=== PATIENT | male | born 2005 | race Caucasian/White ===

== ENCOUNTER 2023-04-04 01:06 | Emergency (ER) | payer BC, SELFPAY ==
[2023-04-04 01:08] VITALS: BP 144/83; PULSE 75; RESP 16; TEMP 37.1; O2SAT 99; BMI 25.7
--- NOTE | 2023-04-04 01:21 | ED.WOUNDLAC ---
HPI - Wound/Laceration General Chief Complaint: Wound/Laceration Stated Complaint: Lt Thigh inj/hockey inj Time Seen by Provider: 04/04/23 01:18 Source: patient Mode of arrival: ambulatory Limitations: no limitations History of Present Illness HPI narrative: 17 yo male no PMH UTD on tdap here with skin avulsion fatty flap to L lower inner thigh from hockey skate at 945pm. Was at [facility] ED for 5 hours but couldn't wait. No other injuries Onset (ago): hour(s) (945pm) Extremity Location: left: thigh Place: outdoors Patient tetanus UTD: Yes Context: accidental Associated symptoms: none Treatments prior to arrival: bandage Related Data Allergies Allergy/AdvReac Type Severity Reaction Status Date / Time No Known Allergies Allergy Verified 04/04/23 01:18 Review of Systems Review of Systems: Constitutional : No Fever, No Chills, Cardiovascular : No Chest Pain, No SOB Respiratory : No Dyspnea Gastrointestinal : No abdominal pain Musculoskeletal : No Joint Swelling Skin : No rash, positive skin laceration Neuro : No Weakness, No Numbness Psych : No SI/HI PMFSH Past Medical History Attestation statement: The following information was validated with the patient. Source: old records reviewed Medical History (Updated 04/04/23 @ 01:26 by Aracelis Block DO) No pertinent past medical history Social History Social History (Updated 04/04/23 @ 01:23 by Aracelis Block DO) Household Members: Family Physical Exam Vital Signs: Vital Signs: Last Vital Signs Temp 98.8 F 04/04/23 01:08 Pulse 75 04/04/23 01:08 Resp 16 04/04/23 01:08 BP 144/83 H 04/04/23 01:08 Pulse Ox 99 04/04/23 01:08 O2 Del Method Room Air 04/04/23 01:08 BMI result Body Mass Index 25.7 Appearance: Alert. Oriented X3. No acute distress. Eyes: Pupils equal, round and reactive to light. ENT: Pharynx normal. Neck: Normal inspection. Neck supple. CVS: Pulses normal. Respiratory: No respiratory distress. Abdomen: Soft and nontender. Skin: Skin warm and dry. Normal skin color. Normal skin turgor. Extremities: L thigh medial aspect half dollar size avulsion just down to subQ not near joint line distal NV inact Neuro: Oriented X 3. No motor deficit. No sensory deficit. Medications Administered Discontinued Medications Generic Name Dose Route Start Last Admin Trade Name Antwan PRN Reason Stop Dose Admin Lidocaine HCl 5 ml 04/04/23 01:21 04/04/23 01:44 Lidocaine Hcl 1 % Mpf 5 Ml Vial SUBCUT 04/04/23 01:22 5 ml ONCE ONE Administration Medical Decision Making Medical Decision Making MDM Narrative: 17 yo male with accidental left thigh laceration - no other injuries normal ROM no concern for deeper injury will suture - Tdap is UTD, no concern for FB Differential Diagnosis Differential Diagnoses: The differential diagnosis associated with the presentation includes laceration Procedures Laceration Laceration 1: Site: lower extremity Side (If applicable): left Size (cm): 3 Description: flap and irregular Depth: simple, single layer Local Anesthetic: lidocaine 1% Amount of anesthesia used (mL): 5 Pre-repair: wound explored, irrigated extensively and deep structures intact Skin layer closed with: nylon Size (cm): 4-0 Number of sutures: 4 Technique: simple, interrupted Discharge Plan Discharge Clinical Impression: Laceration Patient Disposition: Home, Self-Care Instructions: Laceration (ED) Additional Instructions: okay to shower but no pools, hot tubs or other water exposures. keep covered. no sports until sutures removed sutures out in 7 days monitor for redness, yellow drainage, fevers keep clean dry and covered try not to over bend the leg as the stitches will rip there was a flap so it is high risk that the tissue might not take if overstretched and not taken care of
[2023-04-04] MEDS: Lidocaine HCl 1 % MPF 5 ML VIAL SUBCUT (01:44)
[2023-04-04 02:15] VITALS: BP 133/70; PULSE 74; RESP 16; TEMP 36.8; O2SAT 96
== END 2023-04-04 02:20 | disposition home or self-care (01) ==
PROVIDERS: Emergency Provider Emergency Medicine
DX: S71.112A Laceration without foreign body, left thigh, initial encounter (principal); W45.8XXA Other foreign body or object entering through skin, initial encounter; Y93.21 Activity, ice skating; Y92.330 Ice skating rink (indoor) (outdoor) as the place of occurrence of the external cause; Y99.9 Unspecified external cause status
CPT/HCPCS: 12002; 99283; 99284